=== PATIENT | male | born 1955 | race Caucasian/White ===

== ENCOUNTER → 2019-02-03 15:44 | Outpatient (CLI) | payer BC, SELFPAY | PROVIDERS: Referring Provider Otolaryngology Otolaryngology/Facial Plastic Surgery; Visit Provider Otolaryngology Otolaryngology/Facial Plastic Surgery | DX: J32.9 Chronic sinusitis, unspecified (principal) | CPT/HCPCS: 87070; 87205 ==

== ENCOUNTER → 2019-03-13 13:06 | Outpatient (CLI) | payer BC, SELFPAY ==
--- NOTE | 2019-03-13 13:13 | CT_ITS ---
HISTORY:SINUSITIS SINUSITIS EXAMINATION: CT Sinuses W/O Contrast TECHNIQUE: Helically acquired images were obtained of the paranasal sinuses. A radiation dose optimization technique was used for this scan. IV Contrast dosage and agent: None. COMPARISON: None FINDINGS: FRONTAL SINUSES AND RECESSES: Clear. ETHMOID AIR CELLS: Clear. MAXILLARY SINUSES: Minimal mucosal thickening OSTIOMEATAL COMPLEXES: Clear and normally formed. SPHENOID SINUSES: Clear. SPHENOETHMOIDAL RECESSES: Clear. Ancillary findings: NASAL TURBINATES: Conch bullosa bilaterally NASAL SEPTUM: Mildly deviated to the right ORBITS: Unremarkable. VISUALIZED DENTITION: Multiple missing teeth ANTERIOR CRANIAL FOSSA: Unremarkable. CT/Sinus/Facial Bone IMPRESSION: Minimal mucosal thickening in the maxillary sinuses Conch bullosa bilaterally Minimal deviation of the nasal septum to the right Individualized dose optimization techniques were used for this CT. at 1811 Reported and signed by: Nidhi Suazo DO Electronically Signed: Nidhi Suazo DO at 18:10 EDT Tel , Service support ,
== END ==
PROVIDERS: Referring Provider Otolaryngology Otolaryngology/Facial Plastic Surgery; Visit Provider Otolaryngology Otolaryngology/Facial Plastic Surgery
DX: J32.9 Chronic sinusitis, unspecified (principal)
CPT/HCPCS: 70486